=== PATIENT | male | born 1960 | race Caucasian/White ===

== ENCOUNTER 2016-06-09 07:56 | Inpatient (IN) | payer OTHER ==
[~2016-06-09] VITALS: Ht 175.3 cm; Wt 74.4 kg
[2016-06-09 09:03] LABS: BASOPHIL % 0.2 % (0-2); PLATELET COUNT 211 x10^3mcL (130-400); RED CELL DISTRIBUTION WIDTH 13.1 % (11.5-14.5)
[2016-06-09 09:14] LABS: CALCIUM 8.6 mg/dL (8.5-10.1); CHLORIDE SERUM 105 mmol/L (98-107); CREATININE SERUM 0.8 mg/dL (0.7-1.3); GFR1 > 60 mL/min; GLUCOSE SERUM 113 mg/dL (74-106); POTASSIUM SERUM 4.1 mmol/L (3.5-5.1); SODIUM SERUM 140 mmol/L (136-145)
[2016-06-09 09:15] LABS: AMPHETAMINE QUAL UR NONE DETECTED (NEG <=1000)
[2016-06-09 09:19] LABS: ALBUMIN 3.9 g/dL (3.4-5.0); ALKALINE PHOSPHATASE 70 U/L (46-116); ALT/SGPT 24 U/L (16-63); AST/SGOT 13 U/L (15-37); BILIRUBIN TOTAL 0.34 mg/dL (0.20-1.00); CHOLESTEROL 212 mg/dL (<200); HDL CHOLESTEROL 59 mg/dL (40-60); TOTAL PROTEIN, SERUM 7.5 g/dL (6.4-8.2)
[2016-06-09 11:28] LABS: PHOSPHOROUS 3.2 mg/dL (2.5-4.9)
[2016-06-09 11:53] LABS: FREE T4 0.93 ng/dL (0.76-1.46); FREE THYROXINE INDEX 2.3 ug/dL (1.4-4.5); T4(THYROXINE) 6.8 ug/dL (4.7-13.3)
[2016-06-09 12:04] LABS: UA SPECIFIC GRAVITY 1.025 (1.005-1.035); microscopic required? YES; urine erythrocyte TRACE (NEGATIVE)
[2016-06-09 12:12] VITALS: BP 167/108
[2016-06-09 13:44] LABS: CHOLESTEROL/HDL RATIO 3.6
[2016-06-09 13:53] VITALS: BP 167/108
[2016-06-09 15:33] VITALS: BP 138/97
[2016-06-09 16:41] VITALS: BP 131/88
[2016-06-09 18:20] VITALS: BP 141/92
[2016-06-09 21:39] VITALS: BP 141/93
[2016-06-10 06:05] VITALS: BP 104/74
[2016-06-10 07:11] LABS: BASOPHIL % 0.5 % (0-2); PLATELET COUNT 186 x10^3mcL (130-400); RED CELL DISTRIBUTION WIDTH 13.4 % (11.5-14.5)
[2016-06-10 07:30] LABS: CALCIUM 7.9 mg/dL (8.5-10.1); CARBON DIOXIDE 25.5 mmol/L (21-32); CHLORIDE SERUM 108 mmol/L (98-107); CREATININE SERUM 0.8 mg/dL (0.7-1.3); GFR1 > 60 mL/min; GLUCOSE SERUM 100 mg/dL (74-106); POTASSIUM SERUM 3.7 mmol/L (3.5-5.1); SODIUM SERUM 140 mmol/L (136-145)
[2016-06-10 10:09] VITALS: BP 122/76
[2016-06-10 14:42] VITALS: BP 118/80
[2016-06-10 18:17] VITALS: BP 153/102
[2016-06-10] MEDS ORDERED: ECO81 PO (20:21)
[2016-06-10] MEDS ORDERED: ZES10 PO (20:21)
[2016-06-10] MEDS ORDERED: LIPI20 PO (20:21)
[2016-06-10] MEDS ORDERED: PRI20 PO (20:22)
[2016-06-10] MEDS ORDERED: MECLIZINE HCL12.5 MG PO (20:22)
[2016-06-10] MEDS ORDERED: BACO TOP (20:22)
[2016-06-10] MEDS ORDERED: ZOFI IV (20:22)
[2016-06-10] MEDS ORDERED: HIBICLENS118 ML TOP (20:22)
[2016-06-10] MEDS ORDERED: TYL325 PO (20:22)
== END 2016-06-10 21:03 | disposition short-term general hospital (02) | DRG 913 ==
LOC: ED 07:56 → DU 10:32
PROVIDERS: Emergency Medicine; ADMIT Family Medicine
DX: S09.90XA Unspecified injury of head, initial encounter (principal); G93.41 Metabolic encephalopathy; N17.0 Acute kidney failure with tubular necrosis; I10 Essential (primary) hypertension; R73.03 Prediabetes; V43.52XA Car driver injured in collision with other type car in traffic accident, initial encounter; Y92.414 Local residential or business street as the place of occurrence of the external cause; E78.5 Hyperlipidemia, unspecified
CPT/HCPCS: 80307; 83880; 84439; G0480; J3490; J7030; Q0092